=== PATIENT | female | born 1950 | race American Indian/Alaskan Native ===

== ENCOUNTER 2016-11-12 08:03 | Outpatient (CLI) | payer MEDICARE ==
[2016-11-12] MEDS ORDERED: XYLOCAINE TOPICAL 4% TP ONE ×2 (09:31→12:24)
[2016-11-12] MEDS ORDERED: NACL 0.9% 500 ML IR ONE (10:19)
[2016-11-12] MEDS ORDERED: NACL 0.9% IR ONE (13:00)
== END 2016-11-12 08:04 | disposition home or self-care (01) ==
LOC: WOUND 08:03
PROVIDERS: ATTEND Podiatrist
DX: E11.621 Type 2 diabetes mellitus with foot ulcer (principal); E11.40 Type 2 diabetes mellitus with diabetic neuropathy, unspecified; L97.522 Non-pressure chronic ulcer of other part of left foot with fat layer exposed; Z90.710 Acquired absence of both cervix and uterus; Z87.891 Personal history of nicotine dependence
CPT/HCPCS: 11042; 73630; 87075; 87116; G0463

== ENCOUNTER 2016-11-12 11:13 | Outpatient (CLI) | payer MEDICARE ==
--- NOTE | 2016-11-12 12:29 | XRay Report ---
LEFT FOOT, 3 VIEWS History: Left foot ulcer, pain. Findings: There is borderline to mild osteopenia. The bony structures and joint spaces are intact and unremarkable. The soft tissues are within normal limits. No large area of ulceration is identified. Moderate plantar spur. Impression: Osteopenia. Plantar spur.
== END 2016-11-12 11:14 | disposition home or self-care (01) ==
LOC: XRAY 11:13
PROVIDERS: ATTEND Podiatrist
DX: L97.529 Non-pressure chronic ulcer of other part of left foot with unspecified severity (principal); M85.872 Other specified disorders of bone density and structure, left ankle and foot; M77.52 Other enthesopathy of left foot and ankle

== ENCOUNTER 2016-11-19 09:49 | Outpatient (CLI) | payer MEDICARE ==
[2016-11-19] MEDS ORDERED: XYLOCAINE TOPICAL 2% ONE (10:28)
[2016-11-19] MEDS ORDERED: XYLOCAINE TOPICAL 2% TP ONE (16:02)
== END 2016-11-19 09:50 | disposition home or self-care (01) ==
LOC: WOUND 09:49
PROVIDERS: ATTEND Podiatrist
DX: E11.621 Type 2 diabetes mellitus with foot ulcer (principal); L97.522 Non-pressure chronic ulcer of other part of left foot with fat layer exposed; E11.40 Type 2 diabetes mellitus with diabetic neuropathy, unspecified; L84 Corns and callosities; I25.2 Old myocardial infarction; Z87.891 Personal history of nicotine dependence

== ENCOUNTER 2016-11-26 08:24 | Outpatient (CLI) | payer MEDICARE ==
[2016-11-26] MEDS ORDERED: XYLOCAINE TOPICAL 2% ONE (08:39)
[2016-11-26] MEDS ORDERED: XYLOCAINE TOPICAL 2% TP ONE (14:01)
== END 2016-11-26 08:25 | disposition home or self-care (01) ==
LOC: WOUND 08:24
PROVIDERS: ATTEND Surgery
DX: E11.621 Type 2 diabetes mellitus with foot ulcer (principal); L97.521 Non-pressure chronic ulcer of other part of left foot limited to breakdown of skin; E11.40 Type 2 diabetes mellitus with diabetic neuropathy, unspecified; Z87.891 Personal history of nicotine dependence

== ENCOUNTER 2016-11-28 12:12 | Outpatient (CLI) | payer MEDICARE | END 2016-11-28 12:13 | disposition home or self-care (01) | LOC: LAB 12:12 | PROVIDERS: ATTEND Surgery | DX: E11.40 Type 2 diabetes mellitus with diabetic neuropathy, unspecified (principal) | CPT/HCPCS: 36415; 83036 ==

== ENCOUNTER 2016-12-03 08:21 | Outpatient (CLI) | payer MEDICARE ==
[2016-12-03] MEDS ORDERED: XYLOCAINE TOPICAL 2% ONE (08:30)
[2016-12-03] MEDS ORDERED: XYLOCAINE TOPICAL 2% TP ONE (08:53)
== END 2016-12-03 08:22 | disposition home or self-care (01) ==
LOC: WOUND 08:21
PROVIDERS: ATTEND Surgery
DX: E11.621 Type 2 diabetes mellitus with foot ulcer (principal); L97.522 Non-pressure chronic ulcer of other part of left foot with fat layer exposed; E11.40 Type 2 diabetes mellitus with diabetic neuropathy, unspecified; I25.2 Old myocardial infarction; Z87.891 Personal history of nicotine dependence
CPT/HCPCS: 99213; G0463

== ENCOUNTER 2016-12-17 08:36 | Outpatient (CLI) | payer MEDICARE ==
[2016-12-17] MEDS ORDERED: XYLOCAINE TOPICAL 4% TP ONE ×2 (08:48→09:50)
[2016-12-17] MEDS ORDERED: SILVER NITRATE TP ONE ×2 (09:25→09:50)
== END 2016-12-17 08:37 | disposition home or self-care (01) ==
LOC: WOUND 08:36
PROVIDERS: ATTEND Surgery
DX: E11.621 Type 2 diabetes mellitus with foot ulcer (principal); L97.522 Non-pressure chronic ulcer of other part of left foot with fat layer exposed; E11.40 Type 2 diabetes mellitus with diabetic neuropathy, unspecified; I25.2 Old myocardial infarction; Z87.891 Personal history of nicotine dependence

== ENCOUNTER 2016-12-31 08:07 | Outpatient (CLI) | payer MEDICARE ==
[2016-12-31] MEDS ORDERED: XYLOCAINE TOPICAL 2% ONE (08:43)
[2016-12-31] MEDS ORDERED: SILVER NITRATE TP ONE ×2 (09:07→11:56)
[2016-12-31] MEDS ORDERED: XYLOCAINE TOPICAL 2% TP ONE (11:56)
== END 2016-12-31 08:08 | disposition home or self-care (01) ==
LOC: WOUND 08:07
PROVIDERS: ATTEND Surgery
DX: E11.621 Type 2 diabetes mellitus with foot ulcer (principal); L97.522 Non-pressure chronic ulcer of other part of left foot with fat layer exposed; E11.40 Type 2 diabetes mellitus with diabetic neuropathy, unspecified; I25.2 Old myocardial infarction; Z87.891 Personal history of nicotine dependence

== ENCOUNTER 2017-01-21 08:23 | Outpatient (CLI) | payer MEDICARE ==
[2017-01-21] MEDS ORDERED: XYLOCAINE TOPICAL 4% TP ONE (09:09)
[2017-01-21] MEDS ORDERED: SILVER NITRATE TP ONE ×2 (09:23→15:31)
== END 2017-01-21 08:24 | disposition home or self-care (01) ==
LOC: WOUND 08:23
PROVIDERS: ATTEND Surgery
DX: E11.621 Type 2 diabetes mellitus with foot ulcer (principal); L97.522 Non-pressure chronic ulcer of other part of left foot with fat layer exposed; E11.40 Type 2 diabetes mellitus with diabetic neuropathy, unspecified; I25.2 Old myocardial infarction; Z90.710 Acquired absence of both cervix and uterus; Z87.891 Personal history of nicotine dependence

== ENCOUNTER 2017-02-11 08:23 | Outpatient (CLI) | payer MEDICARE ==
[2017-02-11] MEDS ORDERED: XYLOCAINE TOPICAL 2% ONE (08:26)
[2017-02-11] MEDS ORDERED: XYLOCAINE TOPICAL 2% TP ONE (08:48)
[2017-02-11] MEDS ORDERED: SILVER NITRATE TP ONE ×4 (08:54→09:09)
== END 2017-02-11 08:24 | disposition home or self-care (01) ==
LOC: WOUND 08:23
PROVIDERS: ATTEND Surgery
DX: E11.621 Type 2 diabetes mellitus with foot ulcer (principal); L97.522 Non-pressure chronic ulcer of other part of left foot with fat layer exposed; E11.40 Type 2 diabetes mellitus with diabetic neuropathy, unspecified; I25.2 Old myocardial infarction; Z90.710 Acquired absence of both cervix and uterus; Z87.891 Personal history of nicotine dependence

== ENCOUNTER 2019-09-15 13:06 | Outpatient (CLI) | payer MEDICARE | END 2019-09-15 13:07 | disposition home or self-care (01) | LOC: WOUND 13:06 | PROVIDERS: ATTEND Surgery | DX: T87.89 Other complications of amputation stump (principal); E11.621 Type 2 diabetes mellitus with foot ulcer; L97.513 Non-pressure chronic ulcer of other part of right foot with necrosis of muscle; E78.00 Pure hypercholesterolemia, unspecified; I10 Essential (primary) hypertension; Z85.3 Personal history of malignant neoplasm of breast; Z87.891 Personal history of nicotine dependence ==